=== PATIENT | male | born 1995 ===

== ENCOUNTER 2021-07-25 19:09 | Emergency (ER) | payer OTHER, MEDICAID, SELFPAY ==
--- NOTE | 2021-07-25 20:06 | PC.NURSE ---
see triage note, pt is awake and alert refusing to speak resp even and unlabored, refusing vs to be taken pt lying on stretcher with arms crossed, no apparent injuries noted. no paper work from PD received except for citation
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
[2021-07-25 20:44] VITALS: BP 123/61; PULSE 80; RESP 16; TEMP 36.6; O2SAT 100
--- NOTE | 2021-07-25 21:00 | PC.NURSE ---
Pt was talking to himself, I went into the room to ask if he was okay, Pt asked if he could stay the night. I let him know we had to do a few things such as monitor his vitals and he shook his head in agreement. I got his vitals and he continued to ask if he could spend the night. I told him he was safe here but we need to do a few more things to make sure he is okay.
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
[2021-07-25 21:54] LABS: Bilirubin Urine UA 2+ (NEGATIVE); Glucose Urine UA NEGATIVE (Negative); Ketones Urine UA 1+ (NEGATIVE); Leukocyte Esterase Urine UA NEGATIVE (NEGATIVE); Nitrite Urine UA NEGATIVE (Negative); Occult Blood Urine UA NEGATIVE (Negative); Protein Urine UA 1+ (Negative); Specific Gravity Urine UA >=1.030 (1.000-1.035)
[2021-07-25 21:57] LABS: Color Urine UA Dark Yellow
[2021-07-25 21:59] LABS: UR Morphine/Opiate cutoff 300 Negative (Negative); Ur Creatinine Normal (Normal); Ur Specific Gravity Normal (Normal); Urine Amphetamines Negative (Negative); Urine Barbiturates Negative (Negative); Urine Benzodiazepines Negative (Negative); Urine Cocaine Negative (Negative); Urine MDMA Negative (Negative); Urine Methadone Negative (Negative); Urine Methamphetamines Positive (Negative); Urine Oxycodone Negative (Negative); Urine Phencyclidine Negative (Negative); Urine Tetrahydrocannabinol Negative (Negative); Urine Tricyclic Antidepressant Negative (Negative); Urine pH Normal (Normal)
[2021-07-25 22:03] LABS: Appearance Urine UA Clear; RBC Urine 0-1/HPF (0-5/HPF); Squamous Epithelial Cell Urine 0-1 /HPF (0-5/HPF); WBC Urine None Seen (0-5/HPF)
[2021-07-25 22:04] LABS: Amorphous Sediment Urine 2+; Bacteria Urine None Seen; Calcium Oxalate Crystals Urine Moderate; Mucus Urine 3+ (Negative)
[2021-07-25 22:05] LABS: Culture Indicated Urine Cult Not Indicated
[2021-07-25 22:06] LABS: Ictotest Urine Positive (Negative)
[2021-07-25 22:07] LABS: Add Manual Diff / Slide Review NO; Basophils Absolute Auto 0 /uL (0-100); Basophils Percent Auto 0.5 % (0-2); Eosinophils Absolute Auto 100 /uL (0-450); Hematocrit 42.2 % (41-53); Hemoglobin 14.5 g/dL (13.5-17.5); Lymphocytes Absolute Auto 1400 /uL (1100-4500); Lymphocytes Percent Auto 27.8 % (25-40); Mean Corpuscular HGB Conc 34.4 % (30-36); Mean Corpuscular Hemoglobin 29.1 PG (26-34); Mean Corpuscular Volume 84.5 fL (80-100); Monocytes Absolute Auto 600 /uL (0-900); Neutrophils Absolute Auto 2800 /uL (1500-7000); Neutrophils Percent Auto 55.7 % (50-75); Platelet Count 235 X10^3/uL (150-400); Red Blood Cell Count 4.99 X10^6/uL (4.5-5.9)
[2021-07-25 22:12] LABS: COVID19 -Nasal RAPID Negative (Negative)
[2021-07-25 22:16] LABS: Alanine Aminotransferase 23 IU/L (<50); Albumin 4.2 g/dL (3.5-5.0); Albumin Globulin Ratio 1.4 (1.0-2.8); Alkaline Phosphatase 63 U/L (38-126); Aspartate Aminotransferase 33 IU/L (17-59); BUN Creatinine Ratio 13.6 (6-22); Bilirubin Total 0.7 mg/dL (0.2-1.3); Blood Urea Nitrogen 9 mg/dL (9-20); Calcium 8.7 mg/dL (8.4-10.2); Carbon Dioxide 24 mmol/L (22-32); Chloride 106 mmol/L (98-107); Estimated Glomerular Filt Rate > 60 mL/min (>60); Globulin 2.9 g/dL (1.7-4.1); Glucose 124 mg/dL (70-100); HEMOLYSIS < 15 (0-50); Potassium 3.2 mmol/L (3.4-5.1); Sodium 140 mmol/L (137-145); Total Protein 7.1 g/dL (6.3-8.2)
[2021-07-25 22:56] LABS: Thyroid Stimulating Hormone 0.993 uIU/mL (0.47-4.68)
[2021-07-26 10:26] VITALS: BP 108/58
--- NOTE | 2021-07-26 10:52 | PC.NURSE ---
patient un cooperative with vitals, was able to take BP but patient would not remove hands from under head to allow me to check pulse/O2
--- NOTE | 2021-07-26 12:29 | PC.NURSE ---
Pt refusing to answer questions. Pt keeps stating may I check out please.
[2021-07-26 12:56] VITALS: BP 117/71; PULSE 77; RESP 14; O2SAT 98
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
== END 2021-07-26 13:04 | disposition home or self-care (01) ==
PROVIDERS: Emergency Medicine; Emergency Provider Emergency Medicine; PCP Registered Nurse
DX: F15.10 Other stimulant abuse, uncomplicated (principal); Z20.822 Contact with and (suspected) exposure to COVID-19
CPT/HCPCS: 36415; 80053; 80305; 81001; 84443; 85025; 87635; 99283; C9803